=== PATIENT | female | born 1980 | race Caucasian/White ===

== ENCOUNTER 2017-01-12 10:53 | Emergency (ER) | payer OTHER ==
[~2017-01-12] VITALS: Ht 167.6 cm; Wt 72.0 kg
[2017-01-12 10:57] VITALS: Ht 167.6 cm; Wt 72.0 kg
[2017-01-12] MEDS ORDERED: LIDOCAINE 1% (MDV) 20 ML INJ SC ONE (11:30)
[2017-01-12] MEDS ORDERED: LIDO30CR2 TP (11:59)
--- NOTE | 2017-01-12 12:24 | ERD ---
ER Documentation Chief Complaint Date/Time DATE: 01/12/17 TIME: 12:18 Chief Complaint pt bib self with c/o hemrroid, pt had 1 last wk removed, she is 38 wks preg HPI 36-year-old female coming in complaining of hemorrhoid pain 2 days. Patient is 39 weeks seen at [facility] 2 days ago and had hemorrhoid thrombosis removed. She has continued to having pain and believes there is a new thrombosed hemorrhoid within the inguinal region. She takes 2 stool softeners a day. She has been unable to be seen by her [facility] she is out of town currently. She denies any abdominal pain. Denies fevers. Denies abdominal pain. ROS All systems reviewed and are negative except as per history of present illness. Medications Home Meds Active Scripts Lidocaine (Lmx 4) 30 Gm Cream.gm., 30 GM TP QID, #1 Prov:BAILEY ARCHER PA-C 01/12/17 Allergies Allergies: Coded Allergies: No Known Allergy (Unverified , 01/12/17) PMhx/Soc Medical and Surgical Hx: pt denies Medical Hx, pt denies Surgical Hx Hx Alcohol Use: No Hx Substance Use: No Hx Tobacco Use: No Smoking Status: Never smoker Physical Exam Vitals Vital Signs Date Time Temp Pulse Resp B/P Pulse Ox O2 Delivery O2 Flow Rate FiO2 01/12/17 10:57 98.0 92 16 104/55 Physical Exam GENERAL: The patient is well-appearing, well-nourished, in no acute distress CHEST: Clear to auscultation bilaterally. There are no rales, wheezes or rhonchi. HEART: Regular rate and rhythm. No murmurs, clicks, rubs or gallops. No S3 or S4. SKIN: Multiple hemorrhoid tags seen around the anus. Large thrombosed hemorrhoid. No surrounding erythema. No active bleeding. Results 24 hrs Current Medications Medications (Trade) Dose Ordered Sig/Carlos Route PRN Reason Start Time Stop Time Status Last Admin Dose Admin Lidocaine (Xylocaine 1% (Mdv) 20 ml) 20 ml ONCE ONCE SC 01/12/17 11:30 01/12/17 11:31 DC 01/12/17 11:36 Procedures/MDM ER Course: 4 cc of plain lidocaine injected into the hemorrhoids. With blunt dissection 3 hemorrhoids were opened. Multiple blood clots were removed from hemorrhoids. Bleeding was controlled. Patient tolerated procedure well. MDM: 36 female complaining of hemorrhoid pain. A low suspicion for deep infection. I have low suspicion for heavy bleeding. Patient had thrombosed hemorrhoids removed in the ER. Patient tolerated procedure well. Patient is told continue stool softeners and sit in sitz baths at home. Patient is discharged with strict ER precautions and told to follow up with primary doctor in 1-2 days. All questions answered at the time of discharge. Departure Diagnosis: Primary Impression: Hemorrhoid thrombosis Condition: Stable Patient Instructions: Thrombosed Hemorrhoids Additional Instructions: FOLLOW UP WITH YOUR PRIMARY CARE PHYSICIAN TOMORROW.Return to this facility if you are not improving as expected. BAILEY ARCHER PA-C Jan 12, 2017 12:24
== END 2017-01-12 12:13 | disposition home or self-care (01) ==
LOC: FTE 10:53
DX: O99.613 Diseases of the digestive system complicating pregnancy, third trimester (principal); K64.5 Perianal venous thrombosis; Z3A.38 38 weeks gestation of pregnancy
CPT/HCPCS: Z7502; Z7610; 99282